=== PATIENT | male | born 1985 | race Caucasian/White ===

== ENCOUNTER 2020-08-06 06:25 | Day surgery (SDC) | payer OTHER, SELFPAY ==
[~2020-08-06] VITALS: Ht 180.3 cm; Wt 78.0 kg
[2020-08-06] MEDS ORDERED: fentaNYL citrate 0.05 MG/ML VIAL ONE (08:17)
[2020-08-06] MEDS: fentaNYL citrate 0.05 MG/ML VIAL IVP ONE (08:39)
[2020-08-06] MEDS: LIDOCAINE 2% 100 MG/5 ML UJET TP ONE (08:46)
== END 2020-08-06 09:56 | disposition home or self-care (01) ==
LOC: MDS 06:25 → MFCC 06:31 → MDS 09:56
PROVIDERS: ATTEND Internal Medicine Gastroenterology
DX: K62.5 Hemorrhage of anus and rectum (principal); K57.30 Diverticulosis of large intestine without perforation or abscess without bleeding; Z20.828 Contact with and (suspected) exposure to other viral communicable diseases
CPT/HCPCS: 45380; J3010; U0003